=== PATIENT | male | born 1935 | race Caucasian/White ===

== ENCOUNTER 2023-01-22 09:48 | Emergency (ER) | payer MEDICARE, OTHER ==
[~2023-01-22] VITALS: Ht 170.2 cm; Wt 50.3 kg
[2023-01-22] MEDS ORDERED: LIDOCAINE 2% JEL UROJET 10 ML MM ONE (10:51)
[2023-01-22 11:02] LABS: ALANINE AMINOTRANSFERASE 67 U/L (12-78); ALBUMIN 3.3 g/dL (3.4-5.0); ALKALINE PHOSPHATASE 158 U/L (46-116); ASPARTATE AMINOTRANSFERASE 53 U/L (15-37); BILIRUBIN,DIRECT 0.2 mg/dL (0.0-0.2); BILIRUBIN,TOTAL 0.5 mg/dL (0.2-1.0); CALCIUM, SERUM 10.1 mg/dL (8.5-10.1); CARBON DIOXIDE 21 mmol/L (21-32); CHLORIDE 104 mmol/L (98-107); CREATININE 2.1 mg/dL (0.6-1.3); GLUCOSE 134 mg/dL (74-106); LIPASE 33 U/L (16-77); POTASSIUM 4.9 mmol/L (3.5-5.1); SODIUM SERUM 133 mmol/L (136-145); TOTAL PROTEIN, SERUM 8.5 g/dL (6.4-8.2); UREA NITROGEN, BLOOD 62 mg/dL (7-18)
[2023-01-22 11:07] LABS: BASOPHILS % (AUTO) 0.4 % (0.0-2.0); EOSINOPHILS # (AUTO) 0.1 K/uL (0.0-0.7); EOSINOPHILS % (AUTO) 0.9 % (0.0-6.0); HEMATOCRIT 44 % (39-51); HEMOGLOBIN 13.6 g/dL (13.5-17.5); LYMPHOCYTES % (AUTO) 9.2 % (20.0-44.0); MEAN CORPUSCULAR HEMOGLOBIN 29 PG (26.0-33.0); MEAN CORPUSCULAR HGB CONC 31 g/dl (31.0-36.0); MEAN CORPUSCULAR VOLUME 94 fL (80-96); MONOCYTES # (AUTO) 0.8 K/uL (0.1-1.30); MONOCYTES % (AUTO) 7.4 % (2.0-12.0); NEUTROPHILS % (AUTO) 82.1 % (43.0-81.0); PLATELET COUNT (AUTO) 212 K/uL (150-450); RED BLOOD CELL COUNT(AUTO) 4.67 MIL/uL (4.5-6.0); RED CELL DISTRIBUTION WIDTH 17.1 % (11.5-15.0)
[2023-01-22 11:35] LABS: APPEARANCE,URINE TURBID (CLEAR); BILIRUBIN,URINE 1+ (NEGATIVE); BLOOD, URINE 3+ Ery/uL (NEGATIVE); COLOR,URINE RED (YELLOW); KETONES,URINE NEGATIVE (NEGATIVE); LEUKOCYTE ESTERASE ,URINE NEGATIVE (NEGATIVE); NITRITE, URINE NEGATIVE (NEGATIVE); PROTEIN,URINE 3+ mg/dl (NEGATIVE); UGLUCOSE 1+ mg/dL (NEGATIVE); UROBILINOGEN,URINE 0.2 EU/dL (0.2)
[2023-01-22 11:37] LABS: ADD URINE CULTURE NO; BACTERIA,URINE Rare /HPF (None Seen); RBC,URINE TOO NUMEROUS TO COUN /HPF (0-2); SQUAMOUS EPITHELIAL CELL,UR Rare /HPF (None Seen); WBC,URINE 0-2 /HPF (0-3)
[2023-01-22] MEDS ORDERED: DIPH-1062 PO (13:34)
[2023-01-22] MEDS ORDERED: FERR325T23 PO (13:34)
[2023-01-22] MEDS ORDERED: PITA1TAB PO (13:34)
[2023-01-22] MEDS ORDERED: SENN-261 PO (13:34)
[2023-01-22] MEDS ORDERED: TAVA10SO2 TP (13:34)
[2023-01-22] MEDS ORDERED: ENAL-78 PO (13:34)
[2023-01-22] MEDS ORDERED: FOLI0.4T6 PO (13:34)
[2023-01-22] MEDS ORDERED: TRIA0.252 PO (13:34)
[2023-01-22] MEDS ORDERED: ESOM20CA PO (13:34)
[2023-01-22] MEDS ORDERED: CHOL100043 PO (13:34)
[2023-01-22] MEDS ORDERED: VORT20TA PO (13:34)
[2023-01-22] MEDS ORDERED: SPIR50TA5 PO (13:34)
[2023-01-22] MEDS ORDERED: DAPA10TA PO (13:34)
[2023-01-22] MEDS ORDERED: RIVA10TA PO (13:34)
[2023-01-22] MEDS ORDERED: CLON0.5T4 PO (13:34)
[2023-01-22] MEDS ORDERED: MECL-159 PO (13:34)
[2023-01-22] MEDS ORDERED: MELO10CA PO (13:34)
[2023-01-22] MEDS ORDERED: MELA5TAB PO (13:34)
[2023-01-22] MEDS ORDERED: LEVO75TA7 PO (13:34)
[2023-01-22] MEDS ORDERED: VANC125C11 PO (13:34)
[2023-01-22] MEDS ORDERED: MEMA28CA5 PO (13:34)
[2023-01-22] MEDS ORDERED: SODI650T PO (13:34)
[2023-01-22] MEDS ORDERED: FENO120T PO (13:34)
[2023-01-22] MEDS ORDERED: DONE10TA44 PO (13:34)
[2023-01-22] MEDS ORDERED: SOLI5TAB2 PO (13:34)
[2023-01-22] MEDS ORDERED: ASPI-1420 PO (13:34)
[2023-01-22] MEDS ORDERED: TERA10CA4 PO (13:34)
[2023-01-22] MEDS ORDERED: GABA-532 PO (13:34)
[2023-01-22] MEDS ORDERED: POTA10TA10 PO (13:34)
[2023-01-22] MEDS ORDERED: FOLI0.8T23 PO (13:34)
[2023-01-22] MEDS ORDERED: AMYL1CAP58 PO (13:34)
[2023-01-22] MEDS ORDERED: TAMS-12 PO (13:34)
[2023-01-22] MEDS ORDERED: MAGN400T26 PO (13:34)
[2023-01-22] MEDS ORDERED: FURO-145 PO (13:34)
[2023-01-22] MEDS ORDERED: DIGO125T PO (13:34)
[2023-01-22] MEDS ORDERED: LEVO500T90 PO (13:34)
[2023-01-22] MEDS ORDERED: CHLO500T3 PO (13:34)
[2023-01-22] MEDS ORDERED: AMLO-212 PO (13:34)
[2023-01-22] MEDS ORDERED: ICOS1CAP PO (13:34)
[2023-01-22 14:59] VITALS: BP 126/89; TEMP 98.2; O2SAT 98
== END 2023-01-22 14:59 | disposition home or self-care (01) ==
LOC: ER 11:32
DX: N17.9 Acute kidney failure, unspecified (principal)
CPT/HCPCS: 99284; 51702; 85025; 80048; 87086; 83690; 80076; 81001; 36415; J3490; A4217 ×3